=== PATIENT | female | born 1990 | race Caucasian/White ===

== ENCOUNTER 2016-11-17 14:37 | Emergency (ER) | payer MEDICAID ==
[2016-11-17 15:25] LABS: BASOPHILS 0.2 % (0-2); EOSINOPHILS 1.9 % (0-7); HEMATOCRIT 36.2 % (36.0-48.0); HEMOGLOBIN 11.2 g/dL (12-16); IMMATURE GRANULOCYTES 0.5 % (0-5); MCH 19.8 pg (26.0-34.0); MCHC 30.9 g/dL (31.0-37.0); MCV 64.1 fL (80.0-100.0); MONOCYTES 5.4 % (2-11); PLATELET COUNT 299 10x3/uL (130-400); RBC 5.65 10x6/uL (4.00-5.40); RDW 16.7 % (11.5-14.5); WBC 12.9 10x3/uL (4.8-10.8)
[2016-11-17 15:34] LABS: ALBUMIN 3.6 g/dL (3.4-5.0); ALKALINE PHOSPHATASE 55 U/L (46-116); ALT (SGPT) 104 U/L (10-68); BILIRUBIN - TOTAL 0.47 mg/dL (0.2-1.3); CALC OSMOLALITY 270 mosm/kg (275-300); CALCIUM 9.5 mg/dL (8.5-10.1); CARBON DIOXIDE 25.6 mmol/L (21.0-32.0); CHLORIDE - SERUM 103 mmol/L (98-107); CREATININE - SERUM 0.8 mg/dL (0.6-1.3); GLUCOSE 94 mg/dL (74-106); POTASSIUM - SERUM 4.4 mmol/L (3.5-5.1); PROTEIN - SERUM 7.8 g/dL (6.4-8.2); SODIUM 136 mmol/L (136-145); UREA NITROGEN 9 mg/dL (7-18); eGFR NON AFRICAN AMERICAN > 90 mL/min (90-120)
[2016-11-17 18:36] LABS: APPEARANCE CLEAR (CLEAR); BACTERIA FEW /hpf (NONE SEEN); BILIRUBIN NEGATIVE (NEGATIVE); COLOR YELLOW (YELLOW); EPITHELIAL CELLS OCC /hpf (0-5); GLUCOSE NEGATIVE (NEGATIVE); KETONE NEGATIVE (NEGATIVE); LEUKOCYTE ESTERASE TRACE (NEGATIVE); NITRITE NEGATIVE (NEGATIVE); PROTEIN NEGATIVE (NEGATIVE); RED CELLS - URINE 0-5 /hpf (0-5); SPECIFIC GRAVITY 1.015 (1.005-1.020); UROBILINOGEN NORMAL (NORMAL); WHITE CELLS - URINE 0-5 /hpf (0-5)
== END 2016-11-17 20:50 | disposition home or self-care (01) ==
LOC: D.ER 14:37
PROVIDERS: Emergency Medicine
DX: O20.0 Threatened abortion (principal); Z3A.08 8 weeks gestation of pregnancy; F41.9 Anxiety disorder, unspecified

== ENCOUNTER 2017-03-04 01:50 | Emergency (ER) | payer MEDICAID | END 2017-03-04 03:40 | disposition home or self-care (01) | LOC: D.ER 01:50 | DX: J06.9 Acute upper respiratory infection, unspecified (principal) ==

== ENCOUNTER 2017-04-08 14:00 | Emergency (ER) | payer MEDICAID | END 2017-04-08 15:31 | disposition home or self-care (01) | LOC: D.ER 14:00 | DX: T78.40XA Allergy, unspecified, initial encounter (principal); X58.XXXA Exposure to other specified factors, initial encounter ==

== ENCOUNTER 2017-09-15 01:36 | Emergency (ER) | payer MEDICAID | END 2017-09-15 04:30 | disposition home or self-care (01) | LOC: D.ER 01:36 | DX: R11.10 Vomiting, unspecified (principal); R10.9 Unspecified abdominal pain ==

== ENCOUNTER 2018-06-02 19:15 | Emergency (ER) | payer MEDICAID ==
[2018-06-02 20:52] LABS: APPEARANCE CLEAR (CLEAR); BILIRUBIN NEGATIVE (NEGATIVE); COLOR YELLOW (YELLOW); GLUCOSE NEGATIVE (NEGATIVE); KETONE NEGATIVE (NEGATIVE); NITRITE NEGATIVE (NEGATIVE); PROTEIN NEGATIVE (NEGATIVE); UROBILINOGEN NORMAL (NORMAL)
[2018-06-02 20:54] LABS: RED CELLS - URINE 0-5 /hpf (0-5); WHITE CELLS - URINE 0-5 /hpf (0-5)
[2018-06-02 20:55] LABS: BACTERIA MODERATE /hpf (NONE SEEN); EPITHELIAL CELLS 0-5 /hpf (0-5); MUCUS <1+ /lpf (NONE SEEN)
== END 2018-06-02 21:34 | disposition home or self-care (01) ==
LOC: D.ER 19:15
PROVIDERS: Family Medicine
DX: S39.012A Strain of muscle, fascia and tendon of lower back, initial encounter (principal); X58.XXXA Exposure to other specified factors, initial encounter; Y93.89 Activity, other specified; Y92.019 Unspecified place in single-family (private) house as the place of occurrence of the external cause; R82.71 Bacteriuria; M62.838 Other muscle spasm

== ENCOUNTER 2018-07-03 20:22 | Emergency (ER) | payer MEDICAID ==
[~2018-07-03] VITALS: Ht 170.2 cm; Wt 124.1 kg
[~2018-07-03 20:22] MED LIST: CIPRO500 MG PO; GLUCOPHAGE500 MG PO; PROMETRIUM100 MG PO; ROBAXIN500 MG PO; VOLTAREN75 MG PO
[2018-07-03 20:35] VITALS: Ht 170.2 cm; Wt 124.1 kg
[2018-07-03] MEDS ORDERED: KEFLEX500 MG PO (21:07)
[2018-07-03 21:25] VITALS: BP 139/88
== END 2018-07-03 21:25 | disposition home or self-care (01) ==
LOC: D.ER 20:22
DX: J06.9 Acute upper respiratory infection, unspecified (principal); R09.89 Other specified symptoms and signs involving the circulatory and respiratory systems; E11.9 Type 2 diabetes mellitus without complications

== ENCOUNTER 2018-07-12 03:52 | Emergency (ER) | payer MEDICAID ==
[~2018-07-12] VITALS: Ht 170.2 cm; Wt 125.0 kg
[~2018-07-12 03:52] MED LIST changes: +KEFLEX500 MG PO
[2018-07-12 04:00] VITALS: Ht 170.2 cm; Wt 125.0 kg
[2018-07-12 04:27] LABS: HCG URINE NEGATIVE (NEGATIVE)
[2018-07-12 04:34] LABS: APPEARANCE HAZY (CLEAR); BACTERIA NONE SEEN /hpf (NONE SEEN); BILIRUBIN NEGATIVE (NEGATIVE); COLOR YELLOW (YELLOW); EPITHELIAL CELLS 0-5 /hpf (0-5); GLUCOSE NEGATIVE (NEGATIVE); KETONE MODERATE mg/dL (NEGATIVE); MUCUS <1+ /lpf (NONE SEEN); NITRITE NEGATIVE (NEGATIVE); PROTEIN TRACE mg/dL (NEGATIVE); UROBILINOGEN NORMAL (NORMAL); WHITE CELLS - URINE RARE /hpf (0-5)
[2018-07-12 05:14] LABS: BASOPHILS 0.4 % (0-2); EOSINOPHILS 2.9 % (0-7); HEMATOCRIT 35.2 % (36.0-48.0); IMMATURE GRANULOCYTES 0.4 % (0-5); LYMPHOCYTES 33.1 % (15-50); MCHC 31.3 g/dL (31.0-37.0); MCV 60.9 fL (80.0-100.0); MONOCYTES 8.8 % (2-11); NEUTROPHILS 54.4 % (40-80); PLATELET COUNT 296 10x3/uL (130-400); RBC 5.78 10x6/uL (4.00-5.40); RDW 16.9 % (11.5-14.5); WBC 8.5 10x3/uL (4.8-10.8)
[2018-07-12 05:34] LABS: ALBUMIN 3.3 g/dL (3.4-5.0); ALKALINE PHOSPHATASE 40 U/L (46-116); ALT (SGPT) 60 U/L (10-68); CALC OSMOLALITY 281 mosm/kg (275-300); CALCIUM 8.7 mg/dL (8.5-10.1); CARBON DIOXIDE 23.3 mmol/L (21.0-32.0); CHLORIDE - SERUM 107 mmol/L (98-107); CREATININE - SERUM 0.9 mg/dL (0.6-1.3); GLUCOSE 95 mg/dL (74-106); POTASSIUM - SERUM 3.8 mmol/L (3.5-5.1); PROTEIN - SERUM 7.2 g/dL (6.4-8.2); SODIUM 142 mmol/L (136-145); UREA NITROGEN 9 mg/dL (7-18); eGFR NON AFRICAN AMERICAN 79 mL/min (90-120)
[2018-07-12 05:36] LABS: AMYLASE - SERUM 34 U/L (25-115); LIPASE 197 U/L (73-393); TROPONIN-I < 0.017 ng/mL (0.000-0.060)
[2018-07-12] MEDS ORDERED: NORCO 5/325 TAB1 TAB PO (05:57)
[2018-07-12 06:11] VITALS: BP 139/94
== END 2018-07-12 06:11 | disposition home or self-care (01) ==
LOC: D.ER 03:52
PROVIDERS: Family Medicine
DX: N20.0 Calculus of kidney (principal)